=== PATIENT | female | born 2000 | race Caucasian/White ===

== ENCOUNTER 2024-01-07 09:30 | Emergency (ER) | payer OTHER, SELFPAY ==
--- NOTE | ~2024-01-07 | XR_ITS ---
XR foot LT min 3V DATE: 01/07/2024 09:54 INDICATION: Kicked wall one week ago. Second distal metatarsal pain. TECHNIQUE: 4 views COMPARISON: None FINDINGS: No fracture or dislocation, periosteal reaction or bone destruction. IMPRESSION: Negative Reviewed, dictated and finalized at location A. IMPRESSION: Negative
--- NOTE | 2024-01-07 09:34 | ED.EXTPRO ---
HPI - Extremity Problem General Chief complaint: Extremity Injury, Lower Stated complaint: left toe hurts Time Seen by Provider: 01/07/24 09:33 Source: patient Mode of arrival: ambulatory Limitations: no limitations History of Present Illness HPI Narrative: Zaina is a 24-year-old female patient presenting to the clinic today with complaints of left 2 nd toe/metatarsal pain x1 week. She reports she kicked a wall 1 week ago and treated the area. No bruising or swelling noted at this time. Related Data Home Medications Medication Instructions Recorded Confirmed No Home Medications 07/04/19 07/04/19 Allergies Allergy/AdvReac Type Severity Reaction Status Date / Time No Known Allergies Allergy Unknown Verified 07/04/19 08:07 Review of Systems Review of Systems: Pertinent positives per HPI. Patient denies any fever, chills, rash, headache, visual changes, dizziness, cough, runny nose, sore throat, shortness of breath, chest pain, palpitations, nausea, vomiting, diarrhea, constipation, abdominal pain, or any urinary issues. [facility] Family History Family History Grandparent Family history of cardiac disorder Carcinoma of colon Other Hypertension Social History Social History Smoking status: Never smoker Alcohol intake: never Comments At the time of my signature, I reviewed and agree with the nursing past medical, surgical, social, and family history. There is no relevant family history pertinent to the patient complaint. Exam Narrative: General: Well-developed, well nourished, in no apparent distress Head: Normocephalic, atraumatic. Cardio: Regular rate and rhythm, s1 and s2 normal, no murmur appreciated. Resp: Clear to auscultation bilaterally, no rhonchi, rales, wheezing or rubs. Musculoskeletal: No deformity, tender to palpation over the left 2nd distal metatarsal, grossly normal range of motion, muscle strength strong and equal, peripheral pulse strong, no edema, no cyanosis, normal gait and station Course Course Emergency Course: Portions of this record may have been created with voice recognition software. Level of Care: Express Care Visit Vital Signs Vital signs: Vital signs reviewed MDM - Extremity (Nontraumatic) MDM Narrative Medical decision making narrative: At the time of visit patient is resting comfortably on the exam table. Patient appears to be nontoxic. Diagnostics: X-ray of the left foot was performed and was negative in the clinic today. Plans: I suspect patient has a foot contusion. Supportive measures were discussed with the patient and they voiced understanding discharge instructions and agrees to treatment plan. Return precautions reviewed Differential Diagnosis Differential diagnosis: Likely gout and other (Ingrown toenail, paronychia, osteoarthritis) Imaging Data Radiologist's impression: ITS Impressions Foot X-Ray 01/07/24 10:11 IMPRESSION: Negative Discharge Plan Discharge Clinical Impression: Contusion of foot, left Qualifiers: Encounter type: initial encounter Qualified Code(s): S90.32XA - Contusion of left foot, initial encounter Patient Disposition: Home, Self-Care Condition: Stable Instructions: Antibiotic Form, Contusion in Adults (ED), Foot Contusion (ED) Additional Instructions: X-ray of the left foot was negative for any sign of fracture or malalignment. Rest, ice, elevate Tylenol/motrin for pain as discussed. Gradually bear weight No running or sports until healed. Follow up with your PCP if symptoms persist more than 1 week. Prescriptions: No Action No Home Medications Follow-up/Referrals: PHYSICIAN,[facility]OTT[employer] FINISHER [Primary Care Provider] - Time of Disposition: 09:56 Quality NIHSS Nursing Documentation ED NIH nursing documentation: reviewed/agree
[2024-01-07 09:42] VITALS: BP 159/74; PULSE 73; RESP 16; TEMP 36.1; O2SAT 99
== END 2024-01-07 10:24 | disposition home or self-care (01) ==
PROVIDERS: Emergency Provider Nurse Practitioner Family
DX: S90.32XA Contusion of left foot, initial encounter (principal); W22.09XA Striking against other stationary object, initial encounter
CPT/HCPCS: 73630; 99203; G0463

== ENCOUNTER 2024-04-18 13:01 | Emergency (ER) | payer OTHER, SELFPAY ==
--- NOTE | ~2024-04-18 | XR_ITS ---
EXAMINATION: XR finger 1st LT min 2V DATE: 04/18/2024 13:26 INDICATION: Proximal left thumb pain post injury TECHNIQUE: Dorsal palmar, lateral and 2 oblique views of the left first digit were obtained COMPARISON: None FINDINGS: Alignment is normal. No fracture. Joint spaces are normal. Soft tissues are unremarkable. IMPRESSION: 1. Normal left thumb radiographs. Reviewed, dictated and finalized at location B.
[2024-04-18 13:07] VITALS: BP 149/83; PULSE 81; RESP 20; TEMP 36.6; O2SAT 100
--- NOTE | 2024-04-18 13:16 | ED.UPPEXIN ---
HPI - Extremity Injury (Upper) General Chief Complaint: Extremity Injury, Upper Stated Complaint: INJURED L THUMB Time Seen by Provider: 04/18/24 13:16 Source: patient, RN notes reviewed and old records reviewed Mode of arrival: ambulatory Limitations: no limitations History of Present Illness HPI narrative: 24 year old female accompanied by mother who presents to express care with complaints of left thumb injury at the base of thumb 11 days ago which continues to be painful to move. Patient reports that she was attempting to sit down on floor and lost her balance and had her hands outstretched and hyperextended the thumb landing all hr weight onto left hand and thumb. Patient reports that he felt a pop and continues to have pain in the medial aspect of thumb and in proximal metacarpal region. Patient has no discoloration or swelling noted to thumb,has full ROM noted with stated discomfort, strong left radial pulse with circulation and sensation intact. MD complaint: injury to: left and hand (thumb) Onset (ago): day(s) (11) Severity scale (1-10): 4 Treatments prior to arrival: cold therapy, NSAIDS and other (Tylenol and thumb spica splint) Related Data Home Medications Medication Instructions Recorded Confirmed No Home Medications 07/04/19 04/18/24 Allergies Allergy/AdvReac Type Severity Reaction Status Date / Time No Known Allergies Allergy Unknown Verified 04/18/24 13:15 Review of Systems Review of Systems: CONSTITUTIONAL: Denies fever, chills, or sweats. EYES: Denies visual changes, redness, or discharge. ENT: Denies rhinorrhea, congestion, sore throat, or otalgia. CARDIOVASCULAR: Denies chest pain, palpitations, or edema. RESPIRATORY: Denies cough or dyspnea. GASTROINTESTINAL: Denies abdominal pain, nausea, vomiting, or diarrhea. GENITOURINARY: Denies dysuria or hematuria. SKIN: Denies rash or itching. MUSCULOSKELETAL: Denies back pain,positive for left thumb pain medial aspect and proximal metacarpal area increases with use, or myalgia. NEUROLOGIC: Denies headache, numbness, or weakness. PSYCHIATRIC: Denies anxiety or depression. All systems reviewed & are unremarkable except as noted in HPI and below PMFSH Past Medical History Medical History (Updated 04/20/24 @ 11:28 by Joy Cardenas NP) ADHD (attention deficit hyperactivity disorder) Ankle fracture, right Ear infection Left wrist fracture Morbid obesity with BMI of 45.0-49.9, adult Surgical History Surgical History History of placement of ear tubes x3 Family History Family History Grandparent Family history of cardiac disorder Carcinoma of colon Other Hypertension Social History Social History (Updated 04/20/24 @ 11:27 by Joy Cardenas NP) Smoking status: Never smoker Alcohol intake: never Substance use: never Living arrangements: with family Gender identity (if verbalized by the patient): Female Comments At time of signature, agree with nursing past medical, surgical, social and family history. There is no relevant family history pertinent to the presenting complaint Exam Narrative: GENERAL: Well-appearing, well-nourished, morbid obesity and in no acute distress. HEAD: Normocephalic, atraumatic. EYES: PERRLA and EOMI. ENT: Nares clear, no rhinorrhea or epistaxis. Mucous membranes moist. NECK: Supple. no lymphadenopathy CHEST: Clear to auscultation. No respiratory distress.[id number] on room air HEART: Regular rate and rhythm. No murmur heard. Normal peripheral pulses. ABDOMEN: Soft, nontender, nondistended, normal active bowel sounds. EXTREMITIES: Normal range of motion. No edema. reports pain to left medial thumb and proximal metacarpal region with use after injury 11 days ago, ROM, intact, circulation and sensation intact. No discoloration, swelling or obvious deformity noted of left thumb SKIN: Warm,
== END 2024-04-18 13:52 | disposition home or self-care (01) ==
PROVIDERS: Emergency Provider Registered Nurse
DX: M79.645 Pain in left finger(s) (principal); E66.01 Morbid (severe) obesity due to excess calories; Z68.42 Body mass index [BMI] 45.0-49.9, adult
CPT/HCPCS: 73140; 99213; G0463